=== PATIENT | male | born 1985 | race American Indian/Alaskan Native ===

== ENCOUNTER 2018-01-02 07:43 | Day surgery (SDC) | payer MEDICAID ==
[2018-01-02] MEDS ORDERED: Lactated Ringer's 500 ML IV ONE (08:30)
[2018-01-02 08:33] VITALS: TEMP 97; O2SAT 99
[2018-01-02] MEDS ORDERED: Propofol 10 mg/ml Inj (20 ML) ONE (09:22)
[2018-01-02] MEDS ORDERED: Midazolam 2 MG/2 ML VIAL ONE (09:22)
[2018-01-02 10:03] VITALS: BP 100/53; PULSE 60; RESP 14
== END 2018-01-02 11:16 | disposition home or self-care (01) ==
LOC: H.ENDO 07:43
PROVIDERS: ATTEND Internal Medicine Gastroenterology
DX: R10.13 Epigastric pain (principal); K31.89 Other diseases of stomach and duodenum
CPT/HCPCS: 43239; 88305; J2001; J2250; J2704; J7120